=== PATIENT | male | born 1990 | race Two or more races ===

== ENCOUNTER → 2025-01-09 | Outpatient (CLI) | payer OTHER | END | disposition home or self-care (01) | LOC: LAB 13:24 | PROVIDERS: ATTEND Internal Medicine | DX: C85.90 Non-Hodgkin lymphoma, unspecified, unspecified site (principal); Z11.1 Encounter for screening for respiratory tuberculosis; B39.9 Histoplasmosis, unspecified; R74.02 Elevation of levels of lactic acid dehydrogenase [LDH] | CPT/HCPCS: 36415; 82232; 83615; 84550; 86480; 88184; 88185; 88187 ==

== ENCOUNTER → 2025-01-12 | Outpatient (CLI) | payer OTHER | END | disposition home or self-care (01) | LOC: RAD 09:36 | PROVIDERS: ATTEND Internal Medicine | DX: M53.82 Other specified dorsopathies, cervical region (principal); J96.11 Chronic respiratory failure with hypoxia; R59.0 Localized enlarged lymph nodes | CPT/HCPCS: 70492; Q9965 ==

== ENCOUNTER → 2025-02-09 | Outpatient (CLI) | payer OTHER | END | disposition home or self-care (01) | LOC: RAD 08:54 | PROVIDERS: ATTEND Internal Medicine | DX: J96.11 Chronic respiratory failure with hypoxia (principal); R07.9 Chest pain, unspecified | CPT/HCPCS: 71270; Q9967; Q9965 ==